=== PATIENT | female | born 1975 | race Caucasian/White ===

== ENCOUNTER 2017-01-31 13:01 | Emergency (ER) | payer SELFPAY ==
[2017-01-31 14:08] VITALS: BP 122/65
[2017-01-31] MEDS ORDERED: Ketorolac 60 MG/2 ML SDV IM ONE (14:16)
--- NOTE | 2017-01-31 14:19 | EDM.PDOC ---
ED HPI GENERAL MEDICAL PROBLEM - General Chief Complaint: Upper Extremity Injury/Pain Stated Complaint: PT FELL AND HURT HER RT ARM Time Seen by Provider: 01/31/17 13:49 Source of Information: Reports: Patient History Limitations: Reports: No Limitations - History of Present Illness INITIAL COMMENTS - FREE TEXT/NARRATIVE: HISTORY AND PHYSICAL: History of present illness: Patient is a 41-year-old female who presents to the emergency room today with complaints of right wrist pain after a fall yesterday afternoon. Patient reports that she was climbing up a ladder was approximately 5-6 feet off the ground she lost her balance and fell with an outstretched arm. Currently the only complaint is her right wrist. There is increased swelling, erythema and pain with movement. Patient denies hitting her head or any loss of consciousness. Patient is fully ambulatory without any difficulty Review of systems: As per history of present illness and below otherwise all systems reviewed and negative. Past medical history: As per history of present illness and as reviewed below otherwise noncontributory. Surgical history: As per history of present illness and as reviewed below otherwise noncontributory. Social history: No reported history of drug or alcohol abuse. Family history: As per history of present illness and as reviewed below otherwise noncontributory. Physical exam: Enteral: Well-developed and well-nourished 41-year-old female. Able to speak in full sentences without shortness of breath. Alert and oriented. HEENT: Atraumatic, normocephalic, pupils reactive, negative for conjunctival pallor or scleral icterus, mucous membranes moist, throat clear, neck supple, nontender, trachea midline. Lungs: Clear to auscultation, breath sounds equal bilaterally, chest nontender. Heart: S1S2, regular, negative for clicks, rubs, or JVD. Abdomen: Soft, nondistended, nontender. Negative for masses or hepatosplenomegaly. Negative for costovertebral tenderness. Pelvis: Stable nontender. Genitourinary: Deferred. Rectal: Deferred. Extremities: +2 nonpitting edema to the right wrist with erythema and tenderness to touch. Strong radial pulse to the affected extremity. Pain when closing her fist to grasp. Good capillary refill. All other extremities were palpated without any tenderness, obvious deformities, crepitus or difficulty with movement. C-spine and back were palpated without tenderness, crepitus, step -offs, or venous deformities. Negative for cords or calf pain. Neurovascular unremarkable. Neuro: Awake, alert, oriented. Cranial nerves II through XII unremarkable. Cerebellum unremarkable. Motor and sensory unremarkable throughout. Exam nonfocal. Diagnostics: X-ray of the right forearm and wrist Therapeutics: Toradol Impression: Nondisplaced distal radial fracture Plan: 1. Please wear the the half cast fiberglass splint to protect the fracture. 2. You will need to follow-up with an orthopedist within the week. 3. [place] has been prescribed to you for pain management. Please do not take this while needing to be driving her functioning at work. He may take ibuprofen as needed for aches through pain. 4. Return to the ED as needed and as discussed Definitive disposition and diagnosis as appropriate pending reevaluation and review of above. Onset Date: 01/30/17 Duration: Day(s): Location: Reports: Upper Extremity, Right Right Wrist/Forearm Pain Score (Numeric/FACES): 8 - Related Data Allergies Allergy/AdvReac Type Severity Reaction Status Date / Time No Known Allergies Allergy Verified 01/31/17 14:03 Home Meds: Home Meds . 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 ED EXAM, GENERAL - Physical Exam Exam: See Below (See dictation) Course - Vital Signs Last Recorded V/S: Last Vital Signs Temp 36.9 C 01/31/17 14:03 Pulse 80 01/31/17 14:03 Resp 14 01/31/17 14:03 BP 122/65 01/31/17 14:03 Pulse Ox 100 01/31/17 14:03 - Orders/Labs/Meds Orders: Active Orders 24 hr Category Date Time Status DME for Discharge [COMM] Stat Oth 01/31/17 15:19 Ordered Labs: Laboratory Tests 01/31/17 Range/Units 13:50 Urine HCG, Qual NEGATIVE (NEGATIVE) Meds: Medications Discontinued Medications Generic Name Dose Route Start Last Admin Trade Name Mark PRN Reason Stop Dose Admin Hydrocodone Bitart/Acetaminophen 1 tab 01/31/17 15:18 01/31/17 15:27 [place] 325-5 Mg PO 01/31/17 15:19 1 tab ONETIME ONE Administration Ketorolac Tromethamine 60 mg 01/31/17 14:16 01/31/17 14:41 Toradol IM 01/31/17 14:17 60 mg ONETIME ONE Administration Departure - Departure Time of Disposition: 15:38 Disposition: Home, Self-Care 01 Clinical Impression: Fracture of radius Qualifiers: Encounter type: initial encounter Radius location: distal Fracture type: closed Fracture morphology: unspecified fracture morphology Laterality: right Qualified Code(s): S52.501A - Unspecified fracture of the lower end of right radius, initial encounter for closed fracture - Discharge Information Referrals: PCP,None [Primary Care Provider] - Forms: ED Department Discharge Additional Instructions: My general discharge The following information is given to patients seen in the emergency department who are being discharged to home. This information is to outline your options for follow-up care. We provide all patients seen in our emergency department with a follow-up referral. The need for follow-up, as well as the timing and circumstances, are variable depending upon the specifics of your emergency department visit. If you don't have a primary care physician on staff, we will provide you with a referral. We always advise you to contact your personal physician following an emergency department visit to inform them of the circumstance of the visit and for follow-up with them and/or the need for any referrals to a consulting specialist. The emergency department will also refer you to a specialist when appropriate. This referral assures that you have the opportunity for follow-up care with a specialist. All of these measure are taken in an effort to provide you with optimal care, which includes your follow-up. Under all circumstances we always encourage you to contact your private physician who remains a resource for coordinating your care. When calling for follow-up care, please make the office aware that this follow-up is from your recent emergency room visit. If for any reason you are refused follow-up, please contact the [facility] Emergency Department at and asked to speak to the emergency department charge nurse. [facility] [address], [place] [address] [facility] Professional [facility] [address] [place] [address], [address] [place] [address] 1. Please wear the the half cast fiberglass splint to protect the fracture. 2. You will need to follow-up with an orthopedist within the week. 3. [place] has been prescribed to you for pain management. Please do not take this while needing to be driving her functioning at work. He may take ibuprofen as needed for aches through pain. 4. Return to the ED as needed and as discussed - My Orders Last 24 Hours: My Active Orders 01/31/17 15:19 DME for Discharge [COMM] Stat - Assessment/Plan Last 24 Hours: My Active Orders 01/31/17 15:19 DME for Discharge [COMM] Stat
--- NOTE | 2017-01-31 15:08 | CR ---
EXAMINATION: Right forearm and right wrist HISTORY: Pain COMPARISON: None TECHNIQUE: 2 views of the right forearm and 2 views of the right wrist FINDINGS: There is a nondisplaced distal radial metaphysis fracture identified with buckling of the p osterior and lateral cortex. The remaining osseous structures and joint spaces appear intact. Bone mi neralization is normal. No elbow joint effusion. The radiocarpal and radiocapitellar alignments are p reserved. IMPRESSION: 1. Nondisplaced distal radius fracture.
[2017-01-31] MEDS ORDERED: Acetaminophen/HYDROcodone 325-5 MG Tab PO ONE (15:18)
== END 2017-01-31 15:45 | disposition home or self-care (01) ==
LOC: MW.ED 13:01
DX: S52.501A Unspecified fracture of the lower end of right radius, initial encounter for closed fracture (principal); Z90.49 Acquired absence of other specified parts of digestive tract; Z98.890 Other specified postprocedural states; W11.XXXA Fall on and from ladder, initial encounter
CPT/HCPCS: 29125; 73090; 73100; 81025; 96372; 99283; A9270; J1885

== ENCOUNTER 2018-12-04 06:53 | Day surgery (SDC) | payer BC ==
[~2018-12-04 06:53] MED LIST: Lactated Ringers 1,000 ML IV SCH; Sodium Chloride 0.9% 10 ML SDV IV PRN; Sodium Chloride 0.9% 10 ML Syringe FLUSH PRN; Sodium Chloride 0.9% 2.5 ML Syringe FLUSH PRN
[2018-12-04] MEDS ORDERED: Ondansetron 4 MG/2 ML SDV ONE (07:21)
[2018-12-04] MEDS ORDERED: Lidocaine 2% 5 ML SDV ONE (07:21)
[2018-12-04] MEDS ORDERED: Glycopyrrolate 0.2 MG/ML SDV ONE (07:21)
[2018-12-04] MEDS ORDERED: Rocuronium 100 MG/10 ML Syringe ONE (07:21)
[2018-12-04] MEDS ORDERED: Dexamethasone 4 MG/ML 5 ML MDV ONE (07:21)
[2018-12-04] MEDS ORDERED: Ketorolac 30 MG/ML SDV ONE (07:21)
[2018-12-04] MEDS ORDERED: Neostigmine Methylsulfate 1 MG/ML 5 ML Syringe ONE (07:21)
[2018-12-04] MEDS ORDERED: Propofol 200 MG/20 ML SDV ONE (07:26)
[2018-12-04] MEDS ORDERED: fentaNYL 250 MCG/5 ML SDV ONE ×2 (07:26→08:54)
[2018-12-04] MEDS ORDERED: fentaNYL 100 MCG/2 ML SDV ONE (07:26)
[2018-12-04] MEDS ORDERED: Midazolam 1 MG/ML 2 ML SDV ONE (07:26)
[2018-12-04] MEDS ORDERED: Scopolamine 1.5 MG Transdermal Patch TOP ONE (07:32)
[2018-12-04] MEDS ORDERED: Scopolamine 1.5 MG Transdermal Patch TRDERM PRN (07:34)
--- NOTE | 2018-12-04 07:38 | PCM.PREANE ---
Preanesthetic Assessment - Anesthesia/Transfusion/Family Hx Anesthesia History: Prior Anesthesia Reaction Type of Anesthesia Reaction: Excessive Nausea/Vomiting Other Type of Anesthesia Reaction Comment: "woke up during my shoulder surgery" Family History of Anesthesia Reaction: No Transfusion History: No Prior Transfusion(s) - Review of Systems General: No Symptoms Pulmonary: No Symptoms Cardiovascular: No Symptoms Gastrointestinal: No Symptoms Neurological: No Symptoms Other: Reports: None - Physical Assessment Height: 5 ft 6 in Weight: 81.193 kg ASA Class: 2 Mental Status: Alert & Oriented x3 Airway Class: Mallampati = 2 Dentition: Reports: Normal Dentition ROM/Head Extension: Full Lungs: Clear to Auscultation, Normal Respiratory Effort Cardiovascular: Regular Rate, Regular Rhythm - Allergies Allergies/Adverse Reactions: Allergies Allergy/AdvReac Type Severity Reaction Status Date / Time adhesive tape Allergy Rash Verified 11/29/18 09:05 cat dander Allergy Sneezing Verified 11/29/18 09:05 latex Allergy Rash Verified 11/29/18 09:05 - Blood Blood Available: No - Anesthesia Plan Pre-Op Medication Ordered: Other (scop patch) - Acknowledgements Anesthesia Type Planned: General Anesthesia Pt an Appropriate Candidate for the Planned Anesthesia: Yes Alternatives and Risks of Anesthesia Discussed w Pt/Guardian: Yes Pt/Guardian Understands and Agrees with Anesthesia Plan: Yes Additional Comments: PMH: ponv, and latex allergy PLAN: get PreAnesthesia Questionnaire HEENT History: Reports: None Cardiovascular History: Reports: None Respiratory History: Reports: None Gastrointestinal History: Reports: None Genitourinary History: Reports: None, UTI, Recurrent 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: Ectopic , , Other (See Below) Other OB/BYN History: Ovarian cysts Musculoskeletal History: Reports: Fracture Other Musculoskeletal History: hx fx wrist, nose and ribs Neurological History: Reports: None Psychiatric History: Reports: None Endocrine/Metabolic History: Reports: Other (See Below) Other Endocrine/Metabolic History: pituitary tumor Hematologic History: Reports: None Immunologic History: Reports: None Oncologic (Cancer) History: Reports: None Dermatologic History: Reports: None - Past Surgical History Head Surgeries/Procedures: Reports: None HEENT Surgical History: Reports: None Cardiovascular Surgical History: Reports: None Respiratory Surgical History: Reports: None GI Surgical History: Reports: Appendectomy Female Surgical History: Reports: None Endocrine Surgical History: Reports: None Neurological Surgical History: Reports: None Musculoskeletal Surgical History: Reports: Shoulder Surgery Other Musculoskeletal Surgeries/Procedures:: rt RTCR Oncologic Surgical History: Reports: None Dermatological Surgical History: Reports: None - SUBSTANCE USE Smoking Status *Q: Light Tobacco Smoker Tobacco Use Within Last Twelve Months: Cigarettes - HOME MEDS Home Medications: Home Meds . [No Known Home Meds] 02/18/16 [History] - CURRENT (IN HOUSE) MEDS Current Meds: Current Medications Cefazolin Sodium/Dextrose 2 gm (/ Premix) 50 mls @ 100 mls/hr IV ONETIME ONE Stop: 12/04/18 09:52 Lactated Ringer's (Ringers, Lactated) 1,000 mls @ 500 mls/hr IV BOLUS TRICIA Lactated Ringer's (Ringers, Lactated) 1,000 mls @ 100 mls/hr IV ASDIRECTED TRICIA Scopolamine (Transderm-Scop) 1.5 mg TRDERM Q72H PRN PRN Reason: Nausea/Vomiting Sodium Chloride (Saline Flush) 10 ml FLUSH ASDIRECTED PRN PRN Reason: Keep Vein Open Sodium Chloride (Saline Flush) 2.5 ml FLUSH ASDIRECTED PRN PRN Reason: Keep Vein Open Sodium Chloride (Normal Saline) 10 ml IV ASDIRECTED PRN PRN Reason: IV Use Discontinued Medications Dexamethasone (Dexamethasone) Confirm Administered Dose 20 mg .ROUTE .STK-MED ONE Stop: 12/04/18 07:22 Fentanyl (Sublimaze) Confirm Administered Dose 100 mcg .ROUTE .STK-MED ONE Stop: 12/04/18 07:27 Fentanyl (Sublimaze) Confirm Administered Dose 250 mcg .ROUTE .STK-MED ONE Stop: 12/04/18 07:27 Glycopyrrolate (Robinul) Confirm Administered Dose 0.8 mg .ROUTE .STK-MED ONE Stop: 12/04/18 07:22 Ketorolac Tromethamine (Toradol) Confirm Administered Dose 30 mg .ROUTE .STK- MED ONE Stop: 12/04/18 07:22 Lidocaine (Xylocaine-Mpf 2%) Confirm Administered Dose 5 ml .ROUTE .STK-MED ONE Stop: 12/04/18 07:22 Midazolam HCl (Versed 1 Mg/Ml) Confirm Administered Dose 2 mg .ROUTE .STK-MED ONE Stop: 12/04/18 07:27 Neostigmine Methylsulfate (Neostigmine) Confirm Administered Dose 5 mg .ROUTE .STK-MED ONE Stop: 12/04/18 07:22 Ondansetron HCl (Zofran) Confirm Administered Dose 4 mg .ROUTE .STK-MED ONE Stop: 12/04/18 07:22 Propofol (Diprivan 20 Ml) Confirm Administered Dose 200 mg .ROUTE .STK-MED ONE Stop: 12/04/18 07:27 Rocuronium [place] (Zemuron) Confirm Administered Dose 100 mg .ROUTE .STK-MED ONE Stop: 12/04/18 07:22 Scopolamine (Transderm-Scop) 1.5 mg TOP ONETIME ONE Stop: 12/04/18 07:33
[2018-12-04] MEDS ORDERED: Lactated Ringers 1,000 ML IV SCH (07:45)
[2018-12-04] MEDS ORDERED: Sodium Chloride 0.9% 20 ML ONE (07:53)
[2018-12-04] MEDS ORDERED: ceFAZolin 1 GM Vial ONE (07:53)
[2018-12-04 07:54] LABS: CHLORIDE,CL 108 mmol/L (98-107); SODIUM,NA 141 mmol/L (136-145)
[2018-12-04] MEDS ORDERED: Bupivacaine 0.5% 30 ML SDV ONE (08:36)
[2018-12-04] MEDS ORDERED: Lidocaine 1% with EPINEPHrine 1:100,000 20 ML MDV ONE (08:36)
[2018-12-04] MEDS ORDERED: Neomycin/Polymyxin B Bladder Irrigation 1 ML Amp ONE ×2 (08:37→11:21)
[2018-12-04] MEDS ORDERED: Bupivacaine 0.25% 10 ML SDV ONE ×2 (08:45→09:18)
[2018-12-04] MEDS ORDERED: Methylene Blue 50 MG/10 ML Ampule ONE (08:46)
[2018-12-04] MEDS ORDERED: ceFAZolin 2 GM in Premix Bag 1 BAG IV ONE (09:23)
[2018-12-04] MEDS ORDERED: Furosemide 40 MG/4 ML VIAL ONE (10:21)
[2018-12-04] MEDS ORDERED: Fluorescein 5 ML Vial ONE (10:24)
[2018-12-04] MEDS ORDERED: fentaNYL 100 MCG/2 ML SDV IVPUSH PRN (10:33)
[2018-12-04] MEDS ORDERED: Octyl 2-Cyanoacrylate 1 Tube ONE (11:34)
[2018-12-04] MEDS ORDERED: HYDROmorphone 2 MG/ML Syringe ONE ×2 (11:40→12:34)
[2018-12-04] MEDS ORDERED: Acetaminophen/oxyCODONE 325-5 MG Tab PO PRN (11:48)
[2018-12-04] MEDS ORDERED: Promethazine 25 MG/ML SDV IM PRN (11:48)
[2018-12-04] MEDS ORDERED: Ketorolac 30 MG/ML SDV IVPUSH ONE (11:48)
[2018-12-04] MEDS ORDERED: Ondansetron 4 MG/2 ML SDV IVPUSH PRN (11:48)
[2018-12-04] MEDS ORDERED: Ketorolac 30 MG/ML SDV IVPUSH PRN (11:48)
--- NOTE | 2018-12-04 11:58 | PCM.OPNOTE ---
- General Post-Op/Procedure Note Date of Surgery/Procedure: 12/04/18 Operative Procedure(s): Vaginal Hysterectomy, Mccalls culdoplasty. Anterior colporraphy. Midurethral Retropubic sling Findings: 10 week sized anteverted uterus Intial cystoscopy after hysterectomy showed intact bladder and bilateral urethral jet Cystoscopic after retropubic sling showed blue sling in the left bladder wall , it was removed and retropubic sling replaced and cystoscopy afterwards showed intact bladder Pre Op Diagnosis: Abnormal Uterine Bleeding. Stress urinary incontinence Post-Op Diagnosis: Same. 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
[2018-12-04] MEDS: Acetaminophen 1,000 MG in Premix Bag 1 BAG IV SCH ×3 (12:08→23:27)
[2018-12-04] MEDS ORDERED: Acetaminophen 1,000 MG in Premix Bag 1 BAG IV ONE (12:35)
--- NOTE | 2018-12-04 12:55 | PCM.POSTAN ---
POST ANESTHESIA ASSESSMENT - MENTAL STATUS Mental Status: Alert, Oriented - VITAL SIGNS Vital Signs: Last Vital Signs Temp 98.1 F 12/04/18 11:45 Pulse 62 12/04/18 12:50 Resp 12 12/04/18 12:50 BP 113/70 12/04/18 12:50 Pulse Ox 97 12/04/18 12:50 - RESPIRATORY Respiratory Status: Respiratory Rate WNL, Airway Patent, O2 Saturation Stable - CARDIOVASCULAR CV Status: Pulse Rate WNL, Blood Pressure Stable - GASTROINTESTINAL GI Status: No Symptoms - POST OP HYDRATION Hydration Status: Adequate & Stable
[2018-12-04] MEDS: Metoclopramide 10 MG/2 ML SDV IV SCH ×2 (13:29→19:41)
[2018-12-04] MEDS: Acetaminophen/oxyCODONE 325-5 MG Tab PO PRN ×2 (13:54→19:40)
[2018-12-04] MEDS: Morphine 4 MG/ML Syringe IVPUSH PRN (15:19)
[2018-12-04] MEDS: Lactated Ringers 1,000 ML IV SCH ×2 (17:45→23:21)
[2018-12-05] MEDS: Morphine 4 MG/ML Syringe IVPUSH PRN (00:32)
[2018-12-05] MEDS: Acetaminophen/oxyCODONE 325-5 MG Tab PO PRN ×2 (03:50→07:57)
[2018-12-05] MEDS: Metoclopramide 10 MG/2 ML SDV IV SCH ×2 (03:50→11:11)
[2018-12-05] MEDS: Lactated Ringers 1,000 ML IV SCH ×2 (05:15→11:51)
[2018-12-05 07:12] LABS: CHLORIDE,CL 107 mmol/L (98-107); SODIUM,NA 141 mmol/L (136-145)
--- NOTE | 2018-12-05 08:13 | PCM48HPAN ---
Post Anesthesia Note - EVALUATION WITHIN 48HRS OF ANESTHETIC Vital Signs in Normal Range: Yes Patient Participated in Evaluation: Yes Respiratory Function Stable: Yes Airway Patent: Yes Cardiovascular Function Stable: Yes Hydration Status Stable: Yes Pain Control Satisfactory: Yes Nausea and Vomiting Control Satisfactory: Yes Mental Status Recovered: Yes Vital Signs: Last Vital Signs Temp 37.0 C 12/05/18 07:50 Pulse 69 12/05/18 07:50 Resp 16 12/05/18 07:50 BP 112/61 12/05/18 07:50 Pulse Ox 96 12/05/18 07:50 - COMMENTS/OBSERVATIONS Free Text/Narrative:: Patient in bed doing well. No concerns related to anesthesia.
[2018-12-05] MEDS ORDERED: ceFAZolin 2 GM in Premix Bag 1 BAG IV ONE (09:59)
[2018-12-05] MEDS ORDERED: Acetaminophen/oxyCODONE 325-7.5 MG Tab PO PRN (10:00)
[2018-12-05] MEDS ORDERED: Gabapentin 300 MG Cap PO ONE (10:02)
[2018-12-05] MEDS ORDERED: Enoxaparin 40 MG/0.4 ML Syringe SUBCUT ONE (10:02)
[2018-12-05] MEDS ORDERED: oxyCODONE 5 MG Tab PO PRN (10:59)
[2018-12-05] MEDS ORDERED: Acetaminophen 325 MG Tab PO PRN (11:00)
[2018-12-05] MEDS ORDERED: Ibuprofen 800 MG Tab PO ONE (12:18)
--- NOTE | 2018-12-05 13:17 | OR ---
SURGEON: LEONARD DALLAS DATE OF PROCEDURE: 12/04/2018 PREOPERATIVE DIAGNOSES: A 43-year-old with abnormal uterine bleeding, stress urinary incontinence, and cystocele POSTOPERATIVE DIAGNOSES: A 43-year-old with abnormal uterine bleeding, stress urinary incontinence, cystocele, and bladder perforation. PROCEDURES: Total Vaginal hysterectomy, David Culdoplasty Anterior colporrhaphy, Retropubic Midurethral vaginal tape . COMPLICATION Bladder perforation ANESTHESIA: General endotracheal. ESTIMATED BLOOD LOSS: 200. IV FLUIDS: 2800. URINE OUTPUT: 150. DISPOSITION: Stable to recovery room FINDINGS: Normal sized anteverted uterus , Grade 2 cystocoele Cystoscopy after vaginal hysterectomy showed bilateral ureteral jets and intact bladder as evidenced by copious bright green urine from ureteral orifice Cytoscopy after retropubic sling showed blue part of sling in the left mid region of bladder the sling deploying device was removed and replaced on the left ,then repeat cystoscopy showed no sling passage through bladder mucosa. INDICATION: She is 43 years old, who came in complaining of abnormal uterine bleeding and leakage of urine with coughing and sneezing. The patient had cystometry done and showed very severe stress incontinence and a borderline element of intrinsic sphincter deficiency Qtip 30degree She also had an endometrial biopsy done that was negative. An ultrasound and saline USS showed endometrial polyp. The patient was informed that she would need a sling procedure. She was scheduled for advanced manometry, which was not done, and cystometry, which was not done as a result of inadequate staffing. The patient was consented for the anterior- posterior colporrhaphy and sling procedure with either Solyx sling or retropubic sling, anterior and posterior repair, and a David culdoplasty or uterosacral suspension. She was given the option to be referred to a urogynecologist, who has advanced training in sling procedures, which she at that point declined. She said she was comfortable with me doing the procedure. Informed her that I was going to do the procedure with Dr. Dallas, who has very extensive experience doing the procedure. The patient was explained the risks, benefits, and alternatives. The risks do include dyspareunia, injury to the bladder or the bowel, damage to surrounding structures, the need of reoperation, mesh erosion, or dyspareunia . The patient was given the opportunity to ask questions, and all questions were answered. DESCRIPTION OF PROCEDURE: The patient was taken to the operating room, where general anesthesia was performed without difficulty. She was placed in the dorsolithotomy position with Omid stirrups. She was prepared and draped in the normal sterile fashion. The andrade catheter was placed. Then, the cervix was exposed with the aid of the weight speculum in the posterior fornix and the right angle retraction in the anterior fornix . A Emily tenaculum was used to grasp the cervix. A circumferential incision was made around the cervix to separate the cervix from the vagina. Posterior colpotomy was then done by tenting of the cervix, and the posterior cul-de-sac was entered. A long weighted speculum was placed into the posterior cul-de-sac, and anterior colpotomy was also created. The right angle was placed into the vesico uterine space anterior uterus to protect the bladder. Then, a jose was used to clamp the uterosacral ligament. It was clamped, cut, and suture-ligated with 2.0 vicryl . Again, the cardinal was clamped, cut, and suture-ligated. The uterine vessel was clamped, cut, and suture ligated . The ovarian ligament with the cornua of the tube was clamped, cut, and suture-ligated. This was done on the right and left sides. The uterus was removed from the vagina. Then the anterior vaginal wall hydrodissection was done, and the abundant vaginal mucosa was dissected off the muscularis mucosa overlying the bladder. Kim plication stitches was done with 2.0 vicryl to reinforce the bladder. The abundant vaginal mucosa was trimmed. A David culdoplasty was done. The stitch was passed from the vagina to the uterosacral and across the peritoneum in the posterior cul-de -sac and then out through the vagina in the midline , this was done on the right and the left. The colpotomy was then approximated with 0 polysorb in a continous locking fashion. Cystoscopy was done which showed intact bladder and bilateral urethral jets. Then a 5mm incision was made, one fingerbreadth above the pubic symphysis and 1 cm to the lateral from the midline. That incision was then infiltrated with local anesthetic, about 10ml on both sides. Then, attention was given to the mid- urethral region, where a small 1.5 cm incision was made about 1.5cm from the midurethra, and the vaginal mucosa dissected off the midurethra on the right and on the left towards the pubic ramus. The rigid catheter guide was used to deviate the bladder to the opposite side. Then, the sling trocar device was deployed through the tract that was created directed towards the pubic ramus and the pubis immediately alongside the bone entering the space of Retzius, the trocar was guided to perforate the abdominal wall in the abdominal incision that was made. . This was also done on the right and the left sides, after which, a cystoscopy was done. . After the sling was done, the cystoscopy was done, after filling the bladder with 300 mL. With this, a left wall perforation was noted by evidence of the Blue trocar visible within the bladder. So, the trocar was removed on the left and replaced. The cystoscopy was then performed, which showed no trocar in the bladder mucosa. thus confirmed a proper placement. Closed scissor was place underneath the midurethral sling in the vagina and with some tension to allow the mesh lie beneath the midurethral for support. the blue clip was cut After which, the plastic sheath housing the mesh was removed and the mesh cut beneath the skin. The dermabond was used to close the skin.The vaginal cuff was inspected and noted to be hemostatic. All instruments and pad counts were correct x2. The patient, because of perforation, will go home with Andrade to leg bag. The patient tolerated the procedure and was taken to the recovery room in stable condition MICHELE JONAS /[id number] NASRIN
[2018-12-05 13:18] VITALS: BP 106/52
--- NOTE | 2018-12-05 20:14 | PCM.SURGPN ---
- General Info Date of Service: 12/05/18 Date of Surgery/Procedure: 12/04/18 POD#: 1 Post-Op Diagnosis: Abnormal Uterine bleeding. Stress urinary incontinence Functional Status: Reports: Pain Controlled, Tolerating Diet, Ambulating - Review of Systems General: Reports: No Symptoms HEENT: Reports: No Symptoms Pulmonary: Reports: No Symptoms Cardiovascular: Reports: No Symptoms Gastrointestinal: Reports: No Symptoms Genitourinary: Reports: No Symptoms Musculoskeletal: Reports: No Symptoms Skin: Reports: No Symptoms Neurological: Reports: No Symptoms Psychiatric: Reports: No Symptoms - Patient Data Vitals - Most Recent: Last Vital Signs Temp 37.1 C 12/05/18 12:00 Pulse 75 12/05/18 12:00 Resp 18 12/05/18 12:00 BP 106/52 L 12/05/18 12:00 Pulse Ox 96 12/05/18 12:00 Weight - Most Recent: 81.193 kg I&O - Last 24 Hours: Intake & Output 12/05/18 12/05/18 12/05/18 06:59 14:59 22:59 Intake Total 3226 2339 Output Total 2550 950 Balance 676 1389 Lab Results Last 24 Hrs: Laboratory Results - last 24 hr 12/05/18 12/05/18 Range/Units 06:35 06:35 WBC 12.56 H (4.0-11.0) K/uL RBC 3.53 L (4.30-5.90) M/uL Hgb 10.9 L (12.0-16.0) g/dL Hct 33.2 L (36.0-46.0) % MCV 94.1 (80.0-98.0) fL MCH 30.9 (27.0-32.0) pg MCHC 32.8 (31.0-37.0) g/dL RDW Std Deviation 46.4 (28.0-62.0) fl RDW Coeff of Felipe 14 (11.0-15.0) % Plt Count 159 (150-400) K/uL MPV 10.10 (7.40-12.00) fL Neut % (Auto) 77.8 (48.0-80.0) % Lymph % (Auto) 15.6 L (16.0-40.0) % Preston % (Auto) 6.1 (0.0-15.0) % Eos % (Auto) 0.3 (0.0-7.0) % Baso % (Auto) 0.2 (0.0-1.5) % Neut # (Auto) 9.8 H (1.4-5.7) K/uL Lymph # (Auto) 2.0 (0.6-2.4) K/uL Preston # (Auto) 0.8 (0.0-0.8) K/uL Eos # (Auto) 0.0 (0.0-0.7) K/uL Baso # (Auto) 0.0 (0.0-0.1) K/uL Nucleated RBC % 0.0 /100WBC Nucleated RBCs # 0 K/uL Sodium 141 (136-145) mmol/L Potassium 4.0 (3.5-5.1) mmol/L Chloride 107 (98-107) mmol/L Carbon Dioxide 28.1 (21.0-32.0) mmol/L BUN 7 (7.0-18.0) mg/dL Creatinine 0.7 (0.6-1.0) mg/dL Est Cr Clr Drug Dosing 96.01 mL/min Estimated GFR (MDRD) > 60.0 ml/min Glucose 98 (74-106) mg/dL Calcium 8.5 (8.5-10.1) mg/dL Med Orders - Current: Current Medications Discontinued Medications Acetaminophen (Tylenol) 325 mg PO Q6H PRN PRN Reason: pain Last Admin: 12/05/18 11:08 Dose: 325 mg Bupivacaine HCl (Marcaine 0.5%) Confirm Administered Dose 30 ml .ROUTE .STK-MED ONE Stop: 12/04/18 08:37 Bupivacaine HCl (Sensorcaine-Mpf 0.25%) Confirm Administered Dose 10 ml .ROUTE .STK-MED ONE Stop: 12/04/18 08:46 Bupivacaine HCl (Sensorcaine-Mpf 0.25%) Confirm Administered Dose 10 ml .ROUTE .STK-MED ONE Stop: 12/04/18 09:19 Cefazolin Sodium (Ancef) Confirm Administered Dose 2 gm .ROUTE .STK-MED ONE Stop: 12/04/18 07:54 Dexamethasone (Dexamethasone) Confirm Administered Dose 20 mg .ROUTE .STK-MED ONE Stop: 12/04/18 07:22 Enoxaparin Sodium (Lovenox) 40 mg SUBCUT ONETIME ONE Stop: 12/05/18 10:03 Last Admin: 12/05/18 10:18 Dose: 40 mg Fentanyl (Sublimaze) Confirm Administered Dose 100 mcg .ROUTE .STK-MED ONE Stop: 12/04/18 07:27 Fentanyl (Sublimaze) Confirm Administered Dose 250 mcg .ROUTE .STK-MED ONE Stop: 12/04/18 07:27 Fentanyl (Sublimaze) Confirm Administered Dose 250 mcg .ROUTE .STK-MED ONE Stop: 12/04/18 08:55 Fentanyl (Sublimaze) 50 mcg IVPUSH Q5M PRN PRN Reason: Pain Fluorescein Sodium (Ak-Fluor) Confirm Administered Dose 5 ml .ROUTE .STK-MED ONE Stop: 12/04/18 10:25 Furosemide (Lasix) Confirm Administered Dose 40 mg .ROUTE .STK-MED ONE Stop: 12/04/18 10:22 Gabapentin (Neurontin) 300 mg PO ONETIME ONE Stop: 12/05/18 10:03 Last Admin: 12/05/18 10:19 Dose: 300 mg Glycopyrrolate (Robinul) Confirm Administered Dose 0.8 mg .ROUTE .STK-MED ONE Stop: 12/04/18 07:22 Hydromorphone HCl (Dilaudid) Confirm Administered Dose 2 mg .ROUTE .STK-MED ONE Stop: 12/04/18 11:41 Hydromorphone HCl (Dilaudid) Confirm Administered Dose 2 mg .ROUTE .STK-MED ONE Stop: 12/04/18 12:35 Last Admin: 12/04/18 12:39 Dose: 1 mg Cefazolin Sodium/Dextrose 2 gm (/ Premix) 50 mls @ 100 mls/hr IV ONETIME ONE Stop: 12/04/18 09:52 Last Admin: 12/04/18 13:17 Dose: Not Given Lactated Ringer's (Ringers, Lactated) 1,000 mls @ 500 mls/hr IV BOLUS [facility] Last Admin: 12/04/18 07:47 Dose: 500 mls/hr Lactated Ringer's (Ringers, Lactated) 1,000 mls @ 100 mls/hr IV ASDIRECTED [facility] Last Admin: 12/04/18 13:32 Dose: 100 mls/hr Sodium Chloride (Normal Saline) Confirm Administered Dose 20 mls @ as directed .ROUTE .STK-MED ONE Stop: 12/04/18 07:54 Acetaminophen 1,000 mg/ Premix 100 mls @ 400 mls/hr IV Q6H [facility] Stop: 12/05/18 00:14 Last Admin: 12/04/18 23:27 Dose: 400 mls/hr Acetaminophen 1,000 mg/ Premix 100 mls @ 400 mls/hr IV NOW ONE Stop: 12/04/18 12:49 Last Admin: 12/04/18 13:23 Dose: Not Given Lactated Ringer's (Ringers, Lactated) 1,000 mls @ 166 mls/hr IV Q6H [facility] Last Admin: 12/05/18 11:51 Dose: Not Given Cefazolin Sodium/Dextrose 2 gm (/ Premix) 50 mls @ 100 mls/hr IV ONETIME ONE Stop: 12/05/18 10:28 Last Admin: 12/05/18 10:19 Dose: 100 mls/hr Ibuprofen (Motrin) 800 mg PO ONETIME ONE Stop: 12/05/18 12:19 Last Admin: 12/05/18 12:29 Dose: 800 mg Ketorolac Tromethamine (Toradol) Confirm Administered Dose 30 mg .ROUTE .STK- MED ONE Stop: 12/04/18 07:22 Ketorolac Tromethamine (Toradol) 30 mg IVPUSH ONETIME ONE Stop: 12/04/18 11:49 Last Admin: 12/04/18 13:17 Dose: Not Given Ketorolac Tromethamine (Toradol) 30 mg IVPUSH Q6H PRN PRN Reason: Pain (severe 7-10) Stop: 12/09/18 11:48 Last Admin: 12/04/18 23:18 Dose: 30 mg Lidocaine (Xylocaine-Mpf 2%) Confirm Administered Dose 5 ml .ROUTE .STK-MED ONE Stop: 12/04/18 07:22 Lidocaine/Epinephrine (Xylocaine 1% With Epinephrine 1:100,000) Confirm Administered Dose 20 ml .ROUTE .STK-MED ONE Stop: 12/04/18 08:37 Methylene Blue (Provayblue) Confirm Administered Dose 50 mg .ROUTE .STK-MED ONE Stop: 12/04/18 08:47 Metoclopramide HCl (Reglan) 10 mg IV Q8H [facility] Last Admin: 12/05/18 11:11 Dose: 10 mg Midazolam HCl (Versed 1 Mg/Ml) Confirm Administered Dose 2 mg .ROUTE .STK-MED ONE Stop: 12/04/18 07:27 Morphine Sulfate (Morphine) 4 mg IVPUSH Q2H PRN PRN Reason: Pain (severe 7-10) Last Admin: 12/05/18 00:32 Dose: 4 mg Neomycin/Polymyxin (Neosporin Gu Irrigant) Confirm Administered Dose 1 ml .ROUTE .STK-MED ONE Stop: 12/04/18 08:38 Neomycin/Polymyxin (Neosporin Gu Irrigant) Confirm Administered Dose 1 ml .ROUTE .STK-MED ONE Stop: 12/04/18 11:22 Neostigmine Methylsulfate (Neostigmine) Confirm Administered Dose 5 mg .ROUTE .STK-MED ONE Stop: 12/04/18 07:22 Octyl Cyanoacrylate (Dermabond Advance) Confirm Administered Dose 1 applic .ROUTE .STK-MED ONE Stop: 12/04/18 11:35 Ondansetron HCl (Zofran) Confirm Administered Dose 4 mg .ROUTE .STK-MED ONE Stop: 12/04/18 07:22 Ondansetron HCl (Zofran) 4 mg IVPUSH Q6H PRN PRN Reason: Nausea/Vomiting Oxycodone HCl (Oxycodone) 7.5 mg PO Q6H PRN PRN Reason: pain Last Admin: 12/05/18 11:09 Dose: 7.5 mg Oxycodone/Acetaminophen (Percocet 325-5 Mg) 1 tab PO Q4H PRN PRN Reason: Pain (moderate 4-6) Oxycodone/Acetaminophen (Percocet 325-5 Mg) 2 tab PO Q4H PRN PRN Reason: Pain (moderate 4-6) Last Admin: 12/05/18 07:57 Dose: 2 tab Oxycodone/Acetaminophen (Percocet 325-7.5 Mg) 1 tab PO Q6H PRN PRN Reason: Pain (mild 1-3) Promethazine HCl (Phenergan) 25 mg IM Q6H PRN PRN Reason: Nausea/Vomiting Propofol (Diprivan 20 Ml) Confirm Administered Dose 200 mg .ROUTE .STK-MED ONE Stop: 12/04/18 07:27 Rocuronium Eek (Zemuron) Confirm Administered Dose 100 mg .ROUTE .STK-MED ONE Stop: 12/04/18 07:22 Scopolamine (Transderm-Scop) 1.5 mg TOP ONETIME ONE Stop: 12/04/18 07:33 Last Admin: 12/04/18 07:45 Dose: 1.5 mg Scopolamine (Transderm-Scop) 1.5 mg TRDERM Q72H PRN PRN Reason: Nausea/Vomiting Sodium Chloride (Saline Flush) 10 ml FLUSH ASDIRECTED PRN PRN Reason: Keep Vein Open Sodium Chloride (Saline Flush) 2.5 ml FLUSH ASDIRECTED PRN PRN Reason: Keep Vein Open Sodium Chloride (Normal Saline) 10 ml IV ASDIRECTED PRN PRN Reason: IV Use - Exam Wound/Incisions: Dressing Dry and Intact General: Alert HEENT: Pupils Equal Neck: Supple Lungs: Clear to Auscultation Cardiovascular: Regular Rate, Regular Rhythm GI/Abdominal Exam: Normal Bowel Sounds, Other (suprapubic incision c/d/i) Neurological: No New Focal Deficit Psy/Mental Status: Alert - Problem List & Annotations (1) S/P vaginal hysterectomy SNOMED Code(s): 988484838, 112816057 Code(s): Z90.710 - ACQUIRED ABSENCE OF BOTH CERVIX AND UTERUS Status: Acute (2) History of suburethral sling procedure SNOMED Code(s): 875706864 Code(s): Z98.890 - OTHER SPECIFIED POSTPROCEDURAL STATES Status: Acute - Problem List Review Problem List Initiated/Reviewed/Updated: Yes - My Orders Last 24 Hours: Active Orders 24 hr Category Date Time Status Ready for Discharge [RC] PER UNIT ROUTINE Care 12/05/18 12:00 Active - Assessment Assessment (Free Text/Narrative):: 43yo s/p vaginal hysterectomy , anterior colporraphy , Midurethral sling ( retropubic ), complicated with bladder perforation , POD1 ambulating , tolerating regular diet Andrade with adequate urine output ,dark brown in color - Plan Plan (Free Text/Narrative):: Discharge home with andrade to leg bag Ancef X 1 dose given Lovenox for DVT prophylaxis X 1 dose Pain control with percocet 325-7.5 since 5mg not helping WIll give gabapentin 300mg X 1 time Follow up in clinic for 1 week
== END 2018-12-05 13:30 | disposition home or self-care (01) ==
LOC: MW.SDS 06:53 → MW.MS 11:58 → MW.SDS 12-05 13:30
PROVIDERS: ATTEND Obstetrics & Gynecology
DX: N93.9 Abnormal uterine and vaginal bleeding, unspecified (principal); N39.3 Stress incontinence (female) (male); N81.6 Rectocele; N81.11 Cystocele, midline; N32.89 Other specified disorders of bladder; J30.2 Other seasonal allergic rhinitis; F17.210 Nicotine dependence, cigarettes, uncomplicated; Z91.040 Latex allergy status; Z91.048 Other nonmedicinal substance allergy status
CPT/HCPCS: 36415; 57240; 57288; 58270; 80048; 81025; 85025; 85027; 86850; 86900; 86901; 88307; A9270; C1771; J0131; J0690; J1100; J1170; J1650; J1885; J1940; J2001; J2250; J2270; J2405; J2704; J2765; J3010; J3490; J7120; 00944